=== PATIENT | male | born 1970 | race Two or more races ===

== ENCOUNTER 2020-03-17 17:19 | Emergency (ER) | payer OTHER ==
[~2020-03-17] VITALS: Ht 175.3 cm; Wt 74.8 kg
[2020-03-17 17:26] VITALS: BP 121/76; Ht 175.3 cm; Wt 74.8 kg
== END 2020-03-17 19:00 | disposition home or self-care (01) ==
LOC: ED 17:19
DX: S63.502A Unspecified sprain of left wrist, initial encounter (principal); I10 Essential (primary) hypertension; E11.9 Type 2 diabetes mellitus without complications; F17.210 Nicotine dependence, cigarettes, uncomplicated; F12.10 Cannabis abuse, uncomplicated; Z98.890 Other specified postprocedural states; X58.XXXA Exposure to other specified factors, initial encounter; Y93.89 Activity, other specified; Y92.89 Other specified places as the place of occurrence of the external cause; Y99.8 Other external cause status
CPT/HCPCS: 82962; 99406; A4570